=== PATIENT | female | born 1995 | race Two or more races ===

== ENCOUNTER 2025-02-06 06:34 | Inpatient (IN) | payer MEDICAID, SELFPAY ==
[2025-02-06] VITALS (15 sets, daily range): BP systolic 103–127; BP diastolic 54–76; PULSE 55–75; RESP 16–20; TEMP 36.5–37.2; O2SAT 96–97; BMI 31.7
[2025-02-06] MEDS: OXYTOCIN INJ 10 UNIT/ML VIAL IM (07:03)
--- NOTE | 2025-02-06 07:03 | PC.NURSE ---
0623: Phone call received from [facility] ED/RN, reports Ambulance radio called to ED with report of a 29y.o female whom had a home delivery at approximately 0557 today, Pt. enroute to hospital. 0634:Pt. brought up to unit via stretcher, accompanied by EMT personnel x 2, transferred to room 458. 0640:Pt. transferred to bed. 0648:Dr. Lua called, SBAR provided, orders received to admit pt. with routine Admission orders to Labor and Delivery, MD mario alberto Garzon.
[2025-02-06] MEDS: BENZO/LANO/ALOE (Dermoplast) 60 GM CAN 1 SPRAY TOP (07:04)
[2025-02-06] MEDS: OXYTOCIN in NS 20 units 20 UNIT/1,000 ML BAG 125 UNIT IV (07:04)
--- NOTE | 2025-02-06 08:30 | OBDSUM_ITS ---
Data ([place]) Data Hx Section: No : 3 Term: 1 : 0 Livin Abortions: Spontaneous & Theraputic: 0 Delivery Data ([place]) Labor Data Initiation of labor: Spontaneous Induction/Augmentation Agent: None ROM date: 02/06/25 ROM time: 05:30 Amniotic membrane rupture type: Spontaneous Amniotic fluid description: Clear Delivery Data Onset of labor date: 02/06/25 Onset of labor time: 05:20 Complete dilation date: 02/06/25 Complete dilation time: 05:57 delivery date: 02/06/25 delivery time: 05:57 Placenta delivery date: 02/06/25 Placenta delivery time: 06:53 Stage 1 total time: Labor - Stage 1 Duration 37 minutes Delivered by: stephane Delivery nurse: nallely gibson rn [place] nurse: rani peters [place] Layer at delivery: No Support person(s) at delivery: patient arrived to unit via EMS stretcher with infant on chest post home delivery. Other staff at delivery: HOME DELIVERY AT APPROX. 0557, PT ARRIVED TO UNIT AT 0630 VIA EMS. PATIENT TAKEN TO ROOM 458 AND TRANSFERED TO BED.MD CALLED IN TO UNIT. IV PLACED. PLACENTA DELIVERED AT 0653. MD AT POST DELIVERY OF PLACENTA AT 0655. PERINEUM INSPECTED BY MD FOR TEARS. PERINEUM NOTED MINOR SCRAPES TO LABIA, NO NEED FOR REPAIR. ASSIGNED OF 8/10 PER E MT PERSONAL. Anesthesia Type Anesthesia Type: None Placenta Placenta delivery description: Spontaneous EBL Estimated blood loss (ml): 250 Umbilical Cord cord description: 3 Vessels Additional Procedures Home delivery Diane is a 29yo [id number] s/p uncomplicated at home at 39&4wk. She arrived via ambulance. She notes ctx became painful at 0400, SROM occurred around 0530 and then she delivered in squatting position at 0557 and she reached down and caught her baby. She notes baby had spontaneous cry and was vigorous. Placenta delivered spontaneously right after she arrived on L&D unit When I arrived to the room, baby was vigorous on the warmer and patient appeared comfortable. Fundal massage was performed, a small handful of clot was removed from within the cervix with the uterus was noted to have good tone of fundus and lower uterine segment. There was hemostasis. IM pitocin was given. Inspection of perineum and vagina revealed a small left labial abrasion that was hemostatic and required no repair. All counts correct x2. Mom and were doing well when I left the room. Dennise Lua MD Complications Complications: none [place] Data ([place]) [place] Data order: 1 [place]'s gender: Male 1 minute: 8 5 minutes: 10
--- NOTE | 2025-02-06 08:40 | PD.LDHP ---
Documentation for date of: 02/06/25 OB Labor/Induct. HPI History of Present Illness Chief complaint: home delivery : 3 Para: 3 Term pregnancies: 2 pregnancies: 0 Living children: 2 History of Abortions: Spontaneous and Elective: 0 History of Vaginal deliveries: 2 History of sections: No History of : No Date of last menstrual period: 05/04/24 LUKE: 02/09/25 Gestational Age (weeks): 39 Gestational Age (days): 4 Gestational age based on last menstrual period: 39 History of present illness: Diane is a 29yo [id number] s/p uncomplicated at home at 39&4wk. She arrived via ambulance. She notes ctx became painful at 0400, SROM occurred around 0530 and then she delivered in squatting position at 0557 and she reached down and caught her baby. She notes baby had spontaneous cry and was vigorous. History of Present Dating criteria: LMP confirmed by 1st trimester US Adequate Care: Yes Narrative: Hx of uncomplicated term x2, proven to 8lb Labs Maternal Blood Type: O Pos Labs: Positive: Rubella Titre, Negative: RPR, HIV, Chlamydia, Gonorrhea and Group Beta Strep and Unknown: Hepatitis B, Herpes Type 1, Herpes Type 2 and Covid-19 Narrative: 1hr glucola 123 HgbA1c 5.8 NIPT negative MSAFP negative Review of Systems Review of Systems Narrative Review of Systems: Review of Systems Systems Reviewed: All systems reviewed, normal except as documented Constitutional Constitutional: Denies body ache(s), Denies chills, Denies fever(s) and Denies headache(s) ENT Ears, Nose, Mouth, and Throat: Denies headache(s) and Denies vertigo Cardiovascular Cardiovascular: Denies chest pain, Denies palpitations, Denies dyspnea and Denies syncope Respiratory Respiratory: Denies cough, Denies dyspnea Gastrointestinal Gastrointestinal: Denies nausea and Denies vomiting Neurologic Neurologic: Denies convulsions, Denies headache(s), Denies other visual disturbances, Denies syncope and Denies vertigo Past Medical History Family History OTHER FAMILY HX: non-contributory Surgical History SURGICAL: Negative Section OTHER SURGICAL HX: tonsillectomy Social History SOCIAL: No tobacco/ETOH/illicit drug use Past Medical History Comments PMH COMMENT: benign Meds Home Medications and Allergies Home Medications ?Medication ?Instructions ?Recorded ?Confirmed ?Type prenat.vits,citlaly,jti-iwbj-[id number] 1 tab PO QDAY 09/29/21 09/29/21 History Allergies Allergy/AdvReac Type Severity Reaction Status Date / Time Penicillins Allergy Severe Swelling Verified 09/29/21 04:46 GAIN SOAP Allergy Rash Uncoded 02/28/19 02:29 OB Exam Physical Exam Vital signs: Temp Pulse Resp BP O2 Del Method 98.9 F 72 20 117/63 Room Air 02/06/25 07:05 02/06/25 08:36 02/06/25 07:30 02/06/25 08:36 02/06/25 06:40 Narrative: General: well developed, well nourished, no acute distress, conversant Cardiac: normal heart rate Lungs: breathing without distress Abdomen: soft, non-tender, no rebound or guarding Extremities: no edema of BLE See delivery note for further details OB Assessment & Plan Assessment and Plan (1) Encounter for care after unplanned out of hospital delivery: Status: Acute Assessment and plan: Diane is a 29yo [id number] s/p uncomplicated at home at 39&4wk. She arrived via ambulance. She notes ctx became painful at 0400, SROM occurred around 0530 and then she delivered in squatting position at 0557 and she reached down and caught her baby. She notes baby had spontaneous cry and was vigorous. PMHx/PNC significant for: Care with Dr. Mcnally's office Plan: -Admission -Routine labs -Delivery of placenta and immediate after-delivery care -Routine care (2) Normal spontaneous vaginal delivery: Status: Acute
[2025-02-06 09:00] LABS: Basophils # (Auto) 0.0 Thou/mm3 (0.0-0.2); Basophils % (Auto) 0 % (0-2.5); Eosinophils # (Auto) 0.1 Thou/mm3 (0.0-0.5); Eosinophils % (Auto) 1 % (0-10); Hematocrit 38.8 % (36.0-46.0); Hemoglobin 12.5 g/dL (12.0-16.0); Immature Granulocytes Auto 0.04 Thou/mm3 (0.00-0.00); Lymphocytes # (Auto) 1.1 Thou/mm3 (1.0-4.8); Lymphocytes % (Auto) 10 % (10-50); Mean Corpuscular HGB Conc 32.2 g/dl (31.0-37.0); Mean Corpuscular Hemoglobin 26.5 pg (25.0-35.0); Mean Corpuscular Volume 82 fL (80-100); Monocytes # (Auto) 0.5 Thou/mm3 (0.0-0.8); Monocytes % (Auto) 4 % (0-12); Neutrophils # (Auto) 9.6 Thou/mm3 (1.8-7.7); Neutrophils % (Auto) 85 % (37-80); Nucleated Red Blood Cell # 0.00 Thou/mm3 (0.00-0.00); Nucleated Red Blood Cell % 0 /100 WBC (0); Platelet Count 186 Thou/mm3 (140-440); RDW Standard Deviation 42.0 fL (36.4-46.3); Red Blood Count 4.72 Miln/mm3 (4.00-5.20); White Blood Count 11.3 Thou/mm3 (3.6-11.0)
[2025-02-06 09:48] LABS: Syphilis Nonreactive (Nonreactive)
[2025-02-06 09:54] LABS: Amphetamine/Metham Scrn,Ur OB Negative (Negative); Benzoylecgonine Screen, Ur OB Negative (Negative); Opiate Screen,Urine OB Negative (Negative); THC Screen,Urine OB Negative (Negative)
[2025-02-06 14:19] LABS: Basophils # (Auto) 0.0 Thou/mm3 (0.0-0.2); Basophils % (Auto) 0 % (0-2.5); Eosinophils # (Auto) 0.0 Thou/mm3 (0.0-0.5); Eosinophils % (Auto) 0 % (0-10); Hematocrit 36.0 % (36.0-46.0); Hemoglobin 11.5 g/dL (12.0-16.0); Immature Granulocytes Auto 0.05 Thou/mm3 (0.00-0.00); Lymphocytes # (Auto) 1.5 Thou/mm3 (1.0-4.8); Lymphocytes % (Auto) 11 % (10-50); Mean Corpuscular HGB Conc 31.9 g/dl (31.0-37.0); Mean Corpuscular Hemoglobin 26.3 pg (25.0-35.0); Mean Corpuscular Volume 82 fL (80-100); Monocytes # (Auto) 0.5 Thou/mm3 (0.0-0.8); Monocytes % (Auto) 4 % (0-12); Neutrophils # (Auto) 11.5 Thou/mm3 (1.8-7.7); Neutrophils % (Auto) 85 % (37-80); Nucleated Red Blood Cell # 0.00 Thou/mm3 (0.00-0.00); Nucleated Red Blood Cell % 0 /100 WBC (0); Platelet Count 191 Thou/mm3 (140-440); RDW Standard Deviation 42.2 fL (36.4-46.3); Red Blood Count 4.37 Miln/mm3 (4.00-5.20); White Blood Count 13.5 Thou/mm3 (3.6-11.0)
[2025-02-06] MEDS: ACETAMINOPHEN 325 MG TABLET 650 MG PO ×2 (15:32→23:24)
[2025-02-06] MEDS: DOCUSATE SOD 100 MG CAPSULE PO (21:24)
[2025-02-07 03:10] VITALS: BP 125/75; PULSE 60; RESP 16; TEMP 36.8; O2SAT 96
[2025-02-07 08:06] VITALS: BP 113/67; PULSE 60; RESP 20; TEMP 36.4; O2SAT 95
[2025-02-07] MEDS: IBUPROFEN TAB 400 MG TABLET 800 MG PO (08:49)
--- NOTE | 2025-02-07 08:54 | ESDS_ITS ---
DS: Providers Provider Date of admission: 02/06/25 06:47 Primary care physician: Physician No Primary/Family Admitting Provider: Dennise Lua MD Attending Provider on Admission: Dennise Lua MD Consults: 02/06/25 07:06 Referral Routine Comment: Attending Provider on DC: Dennise Lua MD Discharging Provider: Dennise Lua MD DS: Diagnosis Discharge Diagnosis (1) Encounter for care after unplanned out of hospital delivery: Status: Acute Problem List Completed Was Problem List Reviewed/Reconciled?: Yes Summary/Hosp Course Brief History: Diane is a 29yo [id number] s/p uncomplicated at home at 39&4wk. She arrived via ambulance. She notes ctx became painful at 0400, SROM occurred around 0530 and then she delivered in squatting position at 0557 and she reached down and caught her baby. She notes baby had spontaneous cry and was vigorous. She has had an uncomplicated course, meeting all milestones and feels ready for discharge home. She is ambulating without lightheadedness, tolerating regular diet no n/v, spontaneously voiding without issue. She has no chest pain or shortness of breath. No fevers or chills. Minimal, appropriate discomfort. Vitals normal, benign exam. Hemodynamically stable with no evidence of infection. PP Hgb 11.5 from 12.5. Status at Discharge Functional status at discharge: independent ambulation Overall status at discharge: patient is back to baseline Time Spent with Patient Time attestation: Total time spent providing and/or coordinating discharge services: Exam Vital Signs Temp Pulse Resp BP Pulse Ox O2 Del Method 98.3 F 60 16 125/75 96 Room Air 02/07/25 03:10 02/07/25 03:10 02/07/25 03:10 02/07/25 03:10 02/07/25 03:10 02/07/25 03:10 Narrative Exam General: well developed, well nourished, no acute distress, conversant Cardiac: normal heart rate Lungs: breathing without distress Abdomen: soft, gravid, non-tender, no rebound or guarding Extremities: no pain with palpation of calves Discharge Plan Plan Patient Disposition: HOME (Self Care) Patient condition on transfer: Stable Prescriptions/Referrals Prescriptions/Med Rec: New docusate sodium 100 mg Capsule 100 mg PO BID 10 Days Qty: 20 0RF ibuprofen 800 mg tablet 800 mg PO Q8H PRN (Reason: See Comments) 10 Days Qty: 20 0RF No Action prenat.vits,citlaly,[id number]-sbsmz Tablet 1 tab PO QDAY Referrals: No Primary/Family,Physician [Primary Care Provider] - Patient/Caregiver Discharge Instructions Discharge Activity: activity as tolerated and other Other Discharge Activity Instructions:: vaginal rest and no heavy lifting more than 10 pounds for 6 weeks Other Discharge Diet Instructions: regular diet Education Materials: After a Vaginal Print Language: Nigerien Activity Restrictions/Additional Instructions: follow up with Dr. Mcnally's office in 2 to 4 weeks for visit, call for appointment Stand Alone Forms: [place] Award Info., Patient Portal Info Letter Discharge Order Discharge Orders: Discharge (Routine); Ordered 02/07/25 Ordered By: Dennise Lua Planned Discharge Date 02/07/25
== END 2025-02-07 13:05 | disposition home or self-care (01) | DRG 560 ==
LOC: S4SX 08:47 → S4NX 09:05
PROVIDERS: Admitting Provider Obstetrics & Gynecology; Visit Provider Obstetrics & Gynecology
DX: O71.82 Other specified trauma to perineum and vulva (principal); Z37.0 Single live birth; Z3A.39 39 weeks gestation of pregnancy
CPT/HCPCS: 36415; 80307; 85025; 86780; 86850; 86900; 86901; J2590; A9270